=== PATIENT | female | born 1965 | race African-American/Black ===

== ENCOUNTER 2017-03-14 00:32 | Emergency (ER) | payer OTHER ==
[~2017-03-14] VITALS: Ht 167.6 cm; Wt 99.8 kg
--- NOTE | ~2017-03-14 | CR72 ---
[facility] A Service of [facility] & [facility] / [facility] RADIOLOGY TEXT RESULTS PATIENT: SOFIA WILKERSON LOCATION: [facility] : 61 UNIT #: [id number] AGE: [address]: Heather Mccoy MD SEX: F ORDER DR: [id number] [facility] [address] [place], [place] [address] [id number] E MR#: [id number] #: [id number] NAME: SOFIA WILKERSON : 1965 SEX: F STUDY DATE/TIME: 03/14/2017 2:47 UNIT: [facility] ROOM: STUDY DESCRIPTION: CR Chest Single View Portable Attending Physician: Heather Mccoy M.D. Ordering Physician: Heather Mccoy M.D. Primary Care Physician: Hollis Burciaga M.D. MEDICAL IMAGING REPORT This report is preliminary unless electronic signature is present EXAM Portable chest. INDICATIONS Shortness of air and chest pain today. PROCEDURE Frontal view of the chest. COMPARISON 02/25/2007. FINDINGS Heart size is within normal limits. Pulmonary vessels are stable. There is no dense consolidation, visible pleural fluid or pneumothorax. IMPRESSION No active process. Dictated by... Benjamin Townsend M.D. THIS IS AN ELECTRONICALLY VERIFIED REPORT Benjamin Townsend M.D. at 03/18/2017 8:55 AM EED/joanna TD: 03/14/2017 08:47 JOB #: [id number] MEDICAL IMAGING REPORT Page 1 of 1 COPY
[~2017-03-14 00:32] MED LIST: ADVAIR; CLARITIN10 MG
== END 2017-03-14 04:12 | disposition home or self-care (01) ==
LOC: CED 00:32
DX: J06.9 Acute upper respiratory infection, unspecified (principal); J45.909 Unspecified asthma, uncomplicated; F17.210 Nicotine dependence, cigarettes, uncomplicated; Z88.1 Allergy status to other antibiotic agents
CPT/HCPCS: 71010; 94640; 99283